=== PATIENT | female | born 1985 | race Caucasian/White ===

== ENCOUNTER 2017-12-22 10:13 | Inpatient (IN) | payer BC ==
[~2017-12-22] VITALS: Ht 165.1 cm; Wt 79.1 kg
[~2017-12-22 10:13] MED LIST: BCP TD; LAMICTAL
[2018-01-01] VITALS (34 sets, daily range): BP systolic 86–141; BP diastolic 52–82; PULSE 65–101; TEMP 89.5–98.6
[2018-01-01] MEDS ORDERED: PRENATAL MVI (07:45)
[2018-01-01] MEDS ORDERED: ZANTAC 150MG T150 MG PO (07:45)
[2018-01-01 07:59] LABS: BASO % 0.4 % (0.0-2.0); EOS # 0.1 (0.0-0.7); EOS % 1.5 % (0-4.0); GRAN # 3.4 (1.4-6.5); GRAN % 63.8 % (42.2-75.2); LYMPH # 1.4 (1.2-3.4); LYMPH % 25.1 % (20.0-51.0); MEAN CELL VOLUME 89 fl (80.0-100.0); MEAN CORPUSCULAR HGB CONC 34 g/dl (33.0-37.0); MEAN PLATELET VOLUME 10.2 fl (7.4-10.4); MONO # 0.5 (0.1-0.6); MONO % 8.8 % (1.7-9.3); PLATELET COUNT 175 K/mm3 (130-400); RED BLOOD COUNT 3.67 M/mm3 (4.10-5.30); REDCELL DISTRIBUTION WIDTH-CV 12.7 % (11.5-14.5)
[2018-01-01 08:03] LABS: HEMATOCRIT 32.6 % (37.0-47.0); MEAN CORPUSCULAR HEMOGLOBIN 30 pg (27.0-31.0)
[2018-01-01] MEDS ORDERED: PERCOCET 325 MG1 TA2 PO (09:03)
[2018-01-01] MEDS ORDERED: MOTRIN 800800 MG/TAB PO (09:03)
[2018-01-02 06:45] VITALS: BP 116/65; PULSE 77
== END 2018-01-02 15:10 | disposition home or self-care (01) | DRG 775 ==
LOC: LDR 01-01 07:14 → OB 01-01 17:00 → EDSTATUS 01-07 07:24 → LDR 01-07 07:30 → LDRO 01-07 10:13
PROVIDERS: Obstetrics & Gynecology
PROC: 10E0XZZ Delivery of Products of Conception, External Approach (ICD-10-PCS; principal; 2018-01-01)
PROC: 0HQ9XZZ Repair Perineum Skin, External Approach (ICD-10-PCS; 2018-01-01)
PROC: 0UQMXZZ Repair Vulva, External Approach (ICD-10-PCS; 2018-01-01)
DX: O34.211 Maternal care for low transverse scar from previous cesarean delivery (principal); N85.8 Other specified noninflammatory disorders of uterus; O70.0 First degree perineal laceration during delivery; O69.81X0 Labor and delivery complicated by cord around neck, without compression, not applicable or unspecified; Z3A.39 39 weeks gestation of pregnancy; Z37.0 Single live birth
CPT/HCPCS: J2590; J7120